=== PATIENT | female | born 1965 | race Caucasian/White ===

== ENCOUNTER 2021-02-25 13:43 | Emergency (ER) | payer SELFPAY ==
--- NOTE | ~2021-02-25 | US_ITS ---
EXAMINATION: US pelvic complete w TV DATE: 02/25/2021 16:32 INDICATION: Postmenopausal bleeding. TECHNIQUE: Multiple transabdominal and transvaginal sonographic images of the pelvis were obtained. COMPARISON: None. FINDINGS: TRANSABDOMINAL ULTRASOUND: The uterus measures 5.0 x 2.4 x 4.5 cm. There is no free fluid in the pelvis. TRANSVAGINAL ULTRASOUND: The endometrial complex measures 4 mm in thickness. There is fluid in the endometrial complex. The ri ght ovary measures 1.8 x 2.2 x 1.6 cm. The left ovary measures 1.8 x 1.3 x 1.6 cm. There is normal va scular flow in the ovaries. IMPRESSION: 1. Normal thickness of the endometrial complex. Reviewed, dictated and finalized at location A.
[2021-02-25 13:48] VITALS: BP 140/90; PULSE 82; RESP 16; TEMP 36.7; O2SAT 100
--- NOTE | 2021-02-25 15:58 | ED.FEMALEGU ---
HPI - Female Genitourinary General Chief complaint: Vaginal Bleeding Stated complaint: Abn Vag bleeding Time Seen by Provider: 02/25/21 15:56 History of Present Illness HPI Narrative: 56 yo postmenopausal female presents to the ED for vaginal bleeding. She reports that yesterday she had a sudden small swenson of blood. She then had some light spotting throughout the day yesterday. No more bleeding today. She has not had a period in about 14 years. She does not have an OB or PCP. Related Data Allergies Allergy/AdvReac Type Severity Reaction Status Date / Time codeine AdvReac Nausea and Verified 02/25/21 13:53 Vomiting Review of Systems Review of Systems: All systems reviewed & are unremarkable except as noted in HPI and below Constitutional: Constitutional: Reports no additional constitutional complaints ENT: Reports system reviewed and no additional complaints, except as documented Cardiovascular: Cardiovascular: Denies chest pain Respiratory: Respiratory: Denies dyspnea Gastrointestinal: Gastrointestinal: Reports no additional gastrointestinal complaints Genitourinary: Genitourinary: Reports no additional female genitourinary complaints Musculoskeletal: Musculoskeletal: Reports no additional musculoskeletal complaints Neurologic: Denies dizziness and Denies weakness [facility] Social History Social History Smoking status: Never smoker Gender identity (if verbalized by the patient): Female Exam Const: General: healthy appearing, no acute distress and alert Orientation/consciousness: patient oriented x3 HENMT: Head: normal to inspection Neck: Neck: normal visual inspection Resp: Effort & Inspection: normal respiratory effort Auscultation: clear to auscultation bilaterally, no rales, no rhonchi and no wheezes Cardio: Jugular venous distension: no JVD Rate: regular rate Rhythm: regular rhythm Heart sounds: no murmurs GI: Inspection: non-distended GI Palp: Yes Soft to palpation and No Tenderness to palpation present (GI) Skin: General skin exam: normal color Neuro: General: patient oriented x3, moves all extremities and no focal motor deficits Speech: normal speech Psych: Appearance: well kempt Affect: normal affect Course Vital Signs Vital signs: Vital Signs Temperature 36.7 C 02/25/21 13:48 Pulse Rate 82 02/25/21 13:48 Respiratory Rate 16 02/25/21 13:48 Blood Pressure 140/90 02/25/21 13:48 Pulse Oximetry 100 02/25/21 13:48 Temperature 36.7 C 02/25/21 13:48 Pulse Rate 80 02/25/21 17:28 Respiratory Rate 17 02/25/21 17:28 Blood Pressure 126/92 H 02/25/21 17:28 Pulse Oximetry 100 02/25/21 17:28 MDM - Female Genitourinary MDM Narrative Medical decision making narrative: She is not currently bleeding and she is not on blood thinners. She has no symptoms to suggest anemia, so no further lab work up is indicated. No ultrasound. Case discussed with OB they will see her in clinic. Differential Diagnosis Differential diagnosis: Likely other (Urogential cancer, fibroma, other) Medical Records Attestation: I reviewed the patient's medical records. Lab Data Attestation: I reviewed the patient's lab results. Labs: Lab Results 02/25/21 Range/Units 16:26 Urine Color Yellow (Yellow) Urine Appearance Clear (Clear) Urine pH 6.0 (5.0-9.0) Ur Specific [place] 1.014 (1.001-1.035) Urine Protein Negative (Negative) mg/dL Urine Glucose (UA) Negative (Negative) mg/dL Urine Ketones Negative (Negative) mg/dL Ur Blood (Man) 1+ H (Negative) Urine Nitrate Negative (Negative) Urine Bilirubin Negative (Negative) Urine Urobilinogen Negative (<2.0) mg/dL Leukocyte Esterase Rfl Negative (Negative) RO/UL Urine RBC 6-10 H (0-2) /hpf Urine WBC 0-3 /hpf Ur Squamous Epith Cells Rare (Few) /hpf Urine Mucus Rare /lpf Imaging Data Radiologist's impression: ITS
[2021-02-25 16:39] LABS: Add Urine Microscopic? YES; Appearance Urine Clear (Clear); Bilirubin Urine Negative (Negative); Blood Urine 1+ (Negative); Color Urine Yellow (Yellow); Glucose Urine UA Negative (Negative); Ketones Urine Negative (Negative); Leukocyte Esterase Ur Negative LEU/UL (Negative); Mucus Urine Rare /lpf; Nitrate Urine Negative (Negative); Protein Urine Negative (Negative); Specific Grav Ur 1.014 (1.001-1.035); Squamous Epithelial Cell Urine Rare /hpf (Few); Urobilinogen Urine Negative mg/dL (<2.0); WBC Urine 0-3 /hpf
[2021-02-25 17:28] VITALS: BP 126/92; PULSE 80; RESP 17; O2SAT 100
== END 2021-02-25 17:30 | disposition home or self-care (01) ==
PROVIDERS: Emergency Provider Emergency Medicine; PCP Internal Medicine
DX: N95.0 Postmenopausal bleeding (principal)
CPT/HCPCS: 76830; 76856; 81001; 99284

== ENCOUNTER 2022-07-23 11:33 | Emergency (ER) | payer SELFPAY ==
--- NOTE | ~2022-07-23 | XR_ITS ---
XR lumbar spine 2-3V DATE: 07/23/2022 12:40 INDICATION: Low back pain. No injury. TECHNIQUE: AP, lateral, coned lateral lumbosacral views COMPARISON: None FINDINGS: There is mild degenerative spurring and mild degenerative disc disease of the lumbar spine. No fracture or bone destruction. Included lower thoracic and lumbar pedicles are intact. The sacroiliac joints are normal. IMPRESSION: Mild degenerative disc disease Reviewed, dictated and finalized at location A.
[2022-07-23 11:39] VITALS: BP 134/91; PULSE 85; RESP 16; TEMP 36.5; O2SAT 100
[2022-07-23] MEDS: KETOROLAC (*BKC) 60 MG/2 ML VIAL IM (12:31)
[2022-07-23] MEDS: CYCLOBENZAPRINE HCL 10 MG TABLET PO (12:31)
--- NOTE | 2022-07-23 13:04 | ED.BACK ---
HPI - Back Pain/Injury General Chief Complaint: Back Pain/Injury Stated Complaint: Back pain for 3 days Time Seen by Provider: 07/23/22 12:00 History of Present Illness HPI Narrative: Patient is a 57-year-old female who presents ER with low back pain. Ongoing for 3 days. She has been using a heating pad to help her pain. Is not taking any oral medication. Denies numbness or tingling to lower extremities. No urinary difficulty. No abdominal pain or flank pain. 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 No fevers or chills or sweats. No history of IV drug abuse. Reports she feels a knot in her low back. Related Data Allergies Allergy/AdvReac Type Severity Reaction Status Date / Time codeine AdvReac Nausea and Verified 02/25/21 13:53 Vomiting Review of Systems Review of Systems: All systems reviewed & are unremarkable except as noted in HPI and below Constitutional: Constitutional: Denies chills and Denies fever(s) ENT: Denies nasal congestion and Denies sore throat Cardiovascular: Cardiovascular: Denies chest pain, Denies radiating jaw, neck or arm pain and Denies slow heart rate Respiratory: Respiratory: Denies cough and Denies dyspnea Gastrointestinal: Gastrointestinal: Denies abdominal pain, Denies nausea and Denies vomiting Genitourinary: Genitourinary: Denies dysuria and Denies flank pain Musculoskeletal: Musculoskeletal: Reports back pain Neurologic: Denies focal weakness and Denies numbness PMFSH Social History Social History Smoking status: Never smoker Gender identity (if verbalized by the patient): Female Exam Narrative: GENERAL: Well-appearing, well-nourished, and in no acute distress. HEAD: Normocephalic, atraumatic. Back: No midline tenderness of the thoracic spine. There is midline tenderness at the level of L3-L4. No step-offs. No rash or bruising or abrasion. No reproducible paraspinal muscle tenderness. EXTREMITIES: Normal range of motion. No edema. Ambulates without difficulty. SKIN: Warm, dry, no rash. NEURO: Alert and oriented x3. PSYCH: Normal mood and affect. Course Course Emergency Course: Patient informed of results. Mild improvement of discomfort with Toradol and Flexeril. Discharged home. Vital Signs Vital signs: Vital Signs Temperature 97.7 F 07/23/22 11:39 Pulse Rate 85 07/23/22 11:39 Respiratory Rate 16 07/23/22 11:39 Blood Pressure 134/91 H 07/23/22 11:39 Pulse Oximetry 100 07/23/22 11:39 Oxygen Delivery Room Air 07/23/22 11:39 Temperature 97.7 F 07/23/22 11:39 Pulse Rate 85 07/23/22 11:39 Respiratory Rate 16 07/23/22 11:39 Blood Pressure 134/91 H 07/23/22 11:39 Pulse Oximetry 100 07/23/22 11:39 Oxygen Delivery Room Air 07/23/22 11:39 MDM - Back Pain/Injury Imaging Data Radiologist's impression: ITS Impressions Lumbar Spine X-Ray 07/23/22 12:45 IMPRESSION: Mild degenerative disc disease Discharge Plan Discharge Clinical Impression: Acute low back pain Patient Disposition: Home, Self-Care Condition: Stable Instructions: Acute Low Back Pain (ED) Additional Instructions: Return to the ER if you have increased pain in your back, you develop lower extremity weakness/numbness/paralysis, you have numbness or tingling in your private parts, or you are unable to control your ability to urinate/stool. Prescriptions: New cyclobenzaprine 10 mg tablet 10 mg PO TID PRN (Reason: muscle spasm) Qty: 20 0RF naproxen 375 mg tablet 375 mg PO BID Qty: 14 0RF Follow-up/Referrals: Obdulio Quigley MD [Physician] - 1 Week UNKNOWN,DOCTOR [Primary Care Provider] - Stand Alone Forms: Work/School Release IP
== END 2022-07-23 13:43 | disposition home or self-care (01) ==
PROVIDERS: Emergency Provider Emergency Medicine
DX: M54.50 Low back pain, unspecified (principal)
CPT/HCPCS: 72100; 96372; 99283; A9270; J1885

== ENCOUNTER 2025-01-11 08:58 | Emergency (ER) | payer SELFPAY ==
[2025-01-11 09:09] VITALS: BP 134/79; PULSE 83; RESP 16; TEMP 36.4; O2SAT 100
[2025-01-11 09:53] LABS: Basophils Percent Auto 0.4 % (0.2-1.2); Eosinophils Percent Auto 0.5 % (0-4.4); Hematocrit 39.2 % (37.0-47.0); Hemoglobin 12.6 g/dL (12.0-15.0); Immature Granulocyte Absolute 0.03 K/mm3 (0.00-0.031); Immature Granulocyte Percent A 0.4 % (0-0.5); Lymphocytes Absolute Auto 0.83 K/mm3 (0.9-3.2); Lymphocytes Percent Auto 9.8 % (18.3-44.2); Mean Corpuscular HGB Conc 32.1 g/dl (32-36); Mean Corpuscular Volume 96.3 fl (80-100); Mean Platelet Volume 10.1 fl (7.4-10.4); Monocytes Absolute Auto 0.9 K/mm3 (0.1-0.6); Monocytes Percent Auto 10.1 % (2.6-8.5); Neutrophils Absolute Auto 6.7 K/mm3 (1.3-6.7); Neutrophils Percent Auto 78.8 % (45.5-73.1); Platelet Count Result 277 k/mm3 (150-375); Red Blood Count 4.07 M/mm3 (4.2-5.4); Red Cell Distribution Width 12.9 % (11.5-14.5); White Blood Count 8.5 K/mm3 (4.5-10.0)
[2025-01-11 09:58] LABS: Add Urine Microscopic? YES; Appearance Urine Clear (Clear); Bacteria Urine None Seen /hpf; Bilirubin Urine Negative (Negative); Blood Urine 2+ (Negative); Color Urine Yellow (Yellow); Glucose Urine UA Negative (Negative); Ketones Urine 1+ mg/dL (Negative); Leukocyte Esterase Ur Trace LEU/UL (Negative); Nitrate Urine Negative (Negative); Non Pathogenic Casts 0-2; Protein Urine Trace mg/dL (Negative); Specific Grav Ur 1.016 (1.001-1.035); Squamous Epithelial Cell Urine None Seen /hpf (Few); Urobilinogen Urine 0.2 mg/dL (<2.0); pH Urine 5.5 (5.0-9.0)
[2025-01-11 10:04] LABS: Alanine Aminotransferase 14 U/L (6-35); Albumin Level 4.2 g/dL (3.5-5.1); Alkaline Phosphatase 81 U/L (38-126); Anion Gap 8 mmol/L (4-12); Aspartate Amino Transferase 24 U/L (14-36); Bilirubin,Total 0.5 mg/dL (0.2-1.3); Blood Urea Nitrogen 12 mg/dL (7-17); Calcium 9.3 mg/dL (8.4-10.2); Carbon Dioxide 27 mmol/L (22-30); Chloride 101 mmol/L (98-107); Estimated CRCL calculation 74 ml/min; Estimated Glomerular Filt Rate > 60; Glucose 89 mg/dL (65-110); Potassium 4.6 mmol/L (3.4-5.0); Sodium 136 mmol/L (137-145)
--- NOTE | 2025-01-11 10:04 | ED.ABDPAIN ---
HPI - Abdominal Pain General Chief Complaint: Abdominal Pain Stated Complaint: blood in urine, abd pain Time Seen by Provider: 01/11/25 10:04 Source: patient Mode of arrival: ambulatory Limitations: no limitations History of Present Illness HPI narrative: 59 years old white female drove herself to the emergency room complaining of left flank pain, dark urine, nausea for the last 2 days, is getting worse. History of kidney stone. x6 Related Data Allergies Allergy/AdvReac Type Severity Reaction Status Date / Time codeine AdvReac Nausea and Verified 02/25/21 13:53 Vomiting Review of Systems Review of Systems: All systems reviewed & are unremarkable except as noted in HPI and below PMFSH Social History Social History Smoking status: Never smoker Gender identity (if verbalized by the patient): Female Exam Narrative: General appearance: Well-developed, well-nourished Skin: Normal color Head: Normocephalic, nontraumatic Eyes: Clear conjunctiva ENT: Oropharynx normal, ears normal, nose normal Neck: Supple, nontender Chest and respiratory: Airway patent, no respiratory distress, no accessory muscle use Heart: Regular rate/rhythm Abdomen: Soft, left flank tenderness, no bruises, no swelling or rash Vascular: Normal peripheral pulses, normal capillary refill. Musculoskeletal: Normal range of motion, mild tenderness left lower back, no bruises, no swelling or rash Neurologic: Alert and oriented ?3, [employer] is normal as tested, no gross motor deficit Course Vital Signs Vital signs: Vital Signs Temperature 36.4 C L 01/11/25 09:09 Pulse Rate 83 01/11/25 09:09 Respiratory Rate 16 01/11/25 09:09 Blood Pressure 134/79 01/11/25 09:09 Pulse Oximetry 100 01/11/25 09:09 Oxygen Delivery Room Air 01/11/25 09:09 Temperature 36.4 C L 01/11/25 09:09 Pulse Rate 79 01/11/25 10:44 Respiratory Rate 16 01/11/25 10:44 Blood Pressure 155/90 H 01/11/25 10:44 Pulse Oximetry 98 01/11/25 10:44 Oxygen Delivery Room Air 01/11/25 09:09 MDM - Abdominal Pain MDM Narrative Medical decision making narrative: Patient presents with left flank pain Vital signs are stable Physical examination consistent with mild tenderness left flank area Differential diagnosis include kidney stone, urinary tract infection, electrolyte imbalance, dehydration, constipation, colitis, diverticulitis, muscular pain Blood workup today includes CBC, CMP, lipase showed no significant abnormality Urinalysis showed trace leukocyte Estrace, 6-10 RBCs, 6-[address] abdomen and pelvis without contrast showed no acute abnormalities Differential Diagnosis Differential diagnosis: Likely other (As above) Medical Records Attestation: I reviewed the patient's medical records. Lab Data Attestation: I reviewed the patient's lab results. 01/11/25 09:35 01/11/25 09:35 Labs: Lab Results 01/11/25 Range/Units 09:35 WBC 8.5 (4.5-10.0) K/mm3 RBC 4.07 L (4.2-5.4) M/mm3 Hgb 12.6 (12.0-15.0) g/dL Hct 39.2 (37.0-47.0) % MCV 96.3 (80-100) fl MCH 31.0 (26-34) pg MCHC 32.1 (32-36) g/dl RDW 12.9 (11.5-14.5) % Plt Count 277 (150-375) k/mm3 MPV 10.1 (7.4-10.4) fl Immature Gran % (Auto) 0.4 (0-0.5) % Neut % (Auto) 78.8 H (45.5-73.1) % Lymph % (Auto) 9.8 L (18.3-44.2) % [place] % (Auto) 10.1 H (2.6-8.5) % Eos % (Auto) 0.5 (0-4.4) % Baso % (Auto) 0.4 (0.2-1.2) % Lymph # (Auto) 0.83 L (0.9-3.2) K/mm3 [place] # (Auto) 0.9 H (0.1-0.6) K/mm3 Eos # (Auto) 0.0 (0-0.3) K/mm3 Baso # (Auto) 0.0 (0.0-0.1) K/mm3 Abs Immat Gran (auto) 0.03 (0.00-0.031) K/mm3 Absolute Neuts (auto) 6.7 (1.3-6.7) K/mm3 Absolute Nucleated RBC 0.000 (0.0-0.012) K/mm3 Nucleated RBC % 0.0 (0.0-0.2) % Sodium 136 L (137-145) mmol/L Potassium 4.6 (3.4-5.0) mmol/L Chloride 101 (98-107) mmol/L Carbon Dioxide 27 (22-30) mmol/L Anion Gap 8 (4-12) mmol/L BUN 12 (7-17) mg/dL Creatinine 0.60 L (0.7-1.0) mg/dL Estim Creat Clear Calc 74 ml/min Estimated GFR > 60 (59 - ) Glucose 89 (65-110) mg/dL Calcium 9.3 (8.4-10.2) mg/dL Total Bilirubin 0.5 (0.2-1.3) mg/dL AST 24 (14-36) U/L ALT 14 (6-35) U/L Alkaline Phosphatase 81 (38-126) U/L Total Protein 8.0 (6.3-8.2) g/dL Albumin 4.2 (3.5-5.1) g/dL Urine Color Yellow (Yellow) Urine Appearance Clear (Clear) Urine pH 5.5 (5.0-9.0) Ur Specific [place] 1.016 (1.001-1.035) Urine Protein Trace (Negative) mg/dL Urine Glucose (UA) Negative (Negative) mg/dL Urine Ketones 1+ H (Negative) mg/dL Ur Blood (Man) 2+ H (Negative) Urine Nitrate Negative (Negative) Urine Bilirubin Negative (Negative) Urine Urobilinogen 0.2 (<2.0) mg/dL Leukocyte Esterase Rfl Trace H (Negative) RO/UL Urine RBC 6-10 H (0-2) /hpf Urine WBC 6-10 H (0-3) /hpf Ur Squamous Epith Cells None seen (Few) /hpf Urine Bacteria None seen /hpf Urine Casts 0-2 Imaging Data Radiologist's impression: ITS Impressions Abdomen/Pelvis CT 01/11/25 11:25 Impression: Punctate nonobstructing right renal stone. Critical Care Time Critical Care Time Critical Care Time: No Discharge Plan Discharge Clinical Impression: Urinary tract infection, Lower back pain Patient Disposition: Home, Self-Care Condition: Stable Instructions: Antibiotic Form, Urinary Tract Infection in Women (DC), Low Back Strain (ED) Additional Instructions: Return if symptoms are worsening , call your family physician for appointment, take Tylenol, ibuprofen 600 every 6 hours as as needed for aches and pain, continue home medications. Patient Language: Georgian Prescriptions: New ciprofloxacin HCl [Cipro] 500 mg tablet 500 mg PO Q12H Qty: 14 0RF cyclobenzaprine 10 mg tablet 10 mg PO TID PRN (Reason: muscle spasm) Qty: 20 0RF No Action cyclobenzaprine 10 mg tablet 10 mg PO TID PRN (Reason: muscle spasm) Qty: 20 0RF naproxen 375 mg tablet 375 mg PO BID Qty: 14 0RF Follow-up/Referrals: UNKNOWN,DOCTOR [Non-Staff] -
[2025-01-11] MEDS: ONDANSETRON INJ 4 MG/2 ML VIAL IV PUSH (10:43)
[2025-01-11] MEDS: HYDROmorphone HCL INJ (*CRX) 1 MG/ML SYR 0.5 MG IV PUSH (10:43)
[2025-01-11] MEDS: TAMSULOSIN HCL 0.4 MG CAPSULE PO (10:43)
[2025-01-11 10:44] VITALS: BP 155/90; PULSE 79; RESP 16; O2SAT 98
== END 2025-01-11 12:21 | disposition home or self-care (01) ==
PROVIDERS: Emergency Medicine; Emergency Provider Emergency Medicine
DX: N39.0 Urinary tract infection, site not specified (principal); M54.50 Low back pain, unspecified; Z87.442 Personal history of urinary calculi; N20.0 Calculus of kidney
CPT/HCPCS: 36415; 74176; 80053; 81001; 85025; 87086; 87186; 96374; 96375; 99284; A9270; J1171; J2405